=== PATIENT | female | born 1965 | race American Indian/Alaskan Native ===

== ENCOUNTER 2018-01-20 23:33 | Emergency (ER) | payer SELFPAY ==
[2018-01-21 01:30] VITALS: BP 131/87
== END 2018-01-21 03:06 | disposition left against medical advice (07) ==
LOC: ED 23:33
DX: J02.9 Acute pharyngitis, unspecified (principal); Z53.21 Procedure and treatment not carried out due to patient leaving prior to being seen by health care provider